=== PATIENT | female | born 1940 | race Caucasian/White ===

== ENCOUNTER 2017-12-18 15:41 | Inpatient (IN) | payer OTHER, BC ==
[~2017-12-18] VITALS: Ht 165.1 cm; Wt 85.5 kg
[~2017-12-18 15:41] MED LIST: CENTRUM SILV1 TABLET PO; Cinnamon Bark PO; Desyrel PO; ELDEPRYL5 M1 PO; FLAXSEED OIL1000 M2 PO; KLONOPIN0.5 M1 PO; KlonoPIN PO; Norvasc PO; Omega III EPA + DHA PO; PREVACID SOLUTA30 MG PO; SINEMET CR 25-1 EACH PO; SYMMETREL100 M1 PO
[2017-12-18 16:22] LABS: HEMATOCRIT 41.7 % (36.0-46.0); HEMOGLOBIN 14.3 G/DL (11.9-15.5); MCHC 34.3 G/DL (30.0-36.0); MCV 93.3 FL (83-99); PLATELET COUNT 209 K/uL (156-360); RBC DIS.WIDTH-CV 13.7 % (11.8-14.6); RBC DIS.WIDTH-SD 46.5 % (39-53); RED BLOOD COUNT 4.47 M/uL (3.80-5.20); WHITE BLOOD COUNT 5.9 K/uL (4.1-10.2)
[2017-12-18 16:35] LABS: CHLORIDE 99 mEq/L (99-109); POTASSIUM 3.7 mEq/L (3.7-5.4); SODIUM 135 mEq/L (136-147)
[2017-12-18 16:36] LABS: GLUCOSE 98 mg/dL (70-99)
[2017-12-18 16:40] LABS: CREATININE 1.1 mg/dL (0.6-1.3); GFR ESTIMATE (CALCULATED) 51 mL/min/
[2017-12-18 16:41] LABS: UREA NITROGEN (BUN) 13 mg/dL (9-23)
[2017-12-18 16:46] LABS: TROP-I INTERPRETATION NEGATIVE; TROPONIN-I < 0.01 ng/mL (0.0-0.30)
[2017-12-18] MEDS ORDERED: CARBIDOPA-LEVO1 EAC7 PO (21:44)
[2017-12-18] MEDS ORDERED: CARBIDOPA/LEVO1 EACH PO (21:45)
[2017-12-18] MEDS ORDERED: AMANTADINE100 MG PO (21:46)
[2017-12-18] MEDS ORDERED: TRAZODONE HCL50 MG PO (21:47)
[2017-12-18] MEDS ORDERED: AMLODIPINE BESY10 MG PO (21:47)
[2017-12-18] MEDS ORDERED: CLONAZEPAM0.5 MG PO (21:48)
[2017-12-18] MEDS ORDERED: DONEPEZIL HCL10 MG PO (21:49)
[2017-12-18] MEDS ORDERED: LANSOPRAZOLE30 MG PO (21:49)
[2017-12-18] MEDS ORDERED: VENLAFAXINE HC150 M1 PO (21:50)
[2017-12-18] MEDS ORDERED: CALCIUM 500 MG1 EAC2 PO (21:59)
[2017-12-18] MEDS ORDERED: VITAMIN D-3 401 EACH PO (21:59)
[2017-12-18] MEDS ORDERED: CO Q-10100 MG PO (22:00)
[2017-12-18] MEDS ORDERED: VITAMIN B-12500 MC3 PO (22:01)
[2017-12-19 00:06] LABS: PTT 29.2 SEC (25-37)
[2017-12-19 06:31] LABS: BASOPHIL (%) 0.7 % (0-1); EOSINOPHIL (%) 1.3 % (0-5); HEMATOCRIT 41.1 % (36.0-46.0); HEMOGLOBIN 13.6 G/DL (11.9-15.5); LYMPHOCYTE (%) 30.7 % (15-42); LYMPHOCYTE COUNT 0.9 K/uL (1.0-2.8); MCH 31.5 PG (29.0-34.0); MCHC 33.1 G/DL (30.0-36.0); MCV 95.1 FL (83-99); MONOCYTE COUNT 0.6 K/uL (0-0.8); NEUTROPHIL (%) 47.3 % (45-76); NEUTROPHIL COUNT 1.4 K/uL (1.8-6.4); RBC DIS.WIDTH-CV 13.9 % (11.8-14.6); RBC DIS.WIDTH-SD 48.7 % (39-53); RED BLOOD COUNT 4.32 M/uL (3.80-5.20)
[2017-12-19 06:58] LABS: CHLORIDE 102 mEq/L (99-109); POTASSIUM 3.9 mEq/L (3.7-5.4); SODIUM 136 mEq/L (136-147)
[2017-12-19 06:59] LABS: GLUCOSE 85 mg/dL (70-99)
[2017-12-19 07:03] LABS: CREATININE 0.9 mg/dL (0.6-1.3); GFR ESTIMATE (CALCULATED) > 59 mL/min/
[2017-12-19 07:04] LABS: UREA NITROGEN (BUN) 13 mg/dL (9-23)
[2017-12-19 07:21] LABS: PLATELET CLUMPS PRESENT - PLATELET COUNT APPEARS ADQ.
[2017-12-19 07:23] LABS: PLATELET COUNT UNABLE TO REPORT K/uL (156-360)
[2017-12-19 14:33] VITALS: BP 128/68
[2017-12-20 00:05] VITALS: BP 143/78
[2017-12-20 06:52] LABS: HEMATOCRIT 40.2 % (36.0-46.0); HEMOGLOBIN 13.1 G/DL (11.9-15.5); MCH 31.3 PG (29.0-34.0); MCHC 32.6 G/DL (30.0-36.0); MCV 96.2 FL (83-99); PLATELET COUNT 179 K/uL (156-360); RBC DIS.WIDTH-SD 49.5 % (39-53); RED BLOOD COUNT 4.18 M/uL (3.80-5.20); WHITE BLOOD COUNT 2.7 K/uL (4.1-10.2)
[2017-12-20 07:07] VITALS: BP 136/82
[2017-12-20 07:16] LABS: CHLORIDE 101 MEQ/L (99-109); GFR ESTIMATE (CALCULATED) 57 mL/min/; GLUCOSE 82 mg/dL (70-99); POTASSIUM 3.9 MEQ/L (3.7-5.4); SODIUM 139 MEQ/L (136-147); UREA NITROGEN (BUN) 17 mg/dL (9-23)
[2017-12-20 11:04] LABS: APPEARANCE SL.HAZY ((CLEAR)); BILIRUBIN NEGATIVE; BLOOD NEGATIVE; COLOR YELLOW ((YELLOW)); GLUCOSE (STRIP) NEGATIVE; KETONES 5; LEUKOCYTES TRACE; NITRITE NEGATIVE; PROTEIN (STRIP) NEGATIVE; SPECIFIC GRAVITY 1.019 (1.000-1.030); UROBILINOGEN 0.2 MG/DL (0.2-1.0)
[2017-12-20 11:14] LABS: BACTERIA RARE /HPF; EPITHELIAL CELLS 2+ /HPF; MUCUS 1+ /LPF; RED BLOOD CELLS 0-5 /HPF (0-5); UCUL ADDED? YES
[2017-12-20 16:00] VITALS: BP 135/73
[2017-12-20 19:22] VITALS: BP 128/70
[2017-12-20 23:37] VITALS: BP 133/70
[2017-12-21 06:39] LABS: HEMATOCRIT 38.2 % (36.0-46.0); HEMOGLOBIN 12.6 G/DL (11.9-15.5); MCV 93.9 FL (83-99); PLATELET COUNT 200 K/uL (156-360); RBC DIS.WIDTH-CV 13.3 % (11.8-14.6); RBC DIS.WIDTH-SD 46.5 % (39-53); RED BLOOD COUNT 4.07 M/uL (3.80-5.20); WHITE BLOOD COUNT 3.3 K/uL (4.1-10.2)
[2017-12-21 07:01] LABS: CHLORIDE 103 MEQ/L (99-109); CREATININE 0.9 MG/DL (0.6-1.3); GFR ESTIMATE (CALCULATED) > 59 mL/min/; GLUCOSE 93 mg/dL (70-99); POTASSIUM 3.8 MEQ/L (3.7-5.4); SODIUM 139 MEQ/L (136-147); UREA NITROGEN (BUN) 20 mg/dL (9-23)
[2017-12-21 10:07] VITALS: BP 120/70
[2017-12-21 10:14] LABS: C DIFF TOXIN NEGATIVE (NEGATIVE)
[2017-12-21 23:56] VITALS: BP 129/65
[2017-12-22 07:09] LABS: CHLORIDE 102 MEQ/L (99-109); GFR ESTIMATE (CALCULATED) 57 mL/min/; GLUCOSE 90 mg/dL (70-99); SODIUM 139 MEQ/L (136-147); UREA NITROGEN (BUN) 23 mg/dL (9-23)
[2017-12-22 07:33] VITALS: BP 120/76
[2017-12-22] MEDS ORDERED: DOXYCYCLINE HY100 M3 PO (10:22)
[2017-12-22] MEDS ORDERED: OSELTAMIVIR PHO30 MG PO (10:22)
== END 2017-12-22 12:30 | disposition home or self-care (01) | DRG 193 ==
LOC: EME 15:41 → 2EAST 21:29 → EDOF 21:29 → ENRESERV 21:34 → 2EAST 12-19 14:28
PROVIDERS: Hospitalist; Physician Assistant
DX: J10.00 Influenza due to other identified influenza virus with unspecified type of pneumonia (principal); J96.01 Acute respiratory failure with hypoxia; J10.1 Influenza due to other identified influenza virus with other respiratory manifestations; J20.9 Acute bronchitis, unspecified; J98.11 Atelectasis; R19.7 Diarrhea, unspecified; J90 Pleural effusion, not elsewhere classified; G20 Parkinson's disease; E04.1 Nontoxic single thyroid nodule; R59.0 Localized enlarged lymph nodes; I70.0 Atherosclerosis of aorta; I25.10 Atherosclerotic heart disease of native coronary artery without angina pectoris; I10 Essential (primary) hypertension; R79.1 Abnormal coagulation profile; K21.9 Gastro-esophageal reflux disease without esophagitis; F32.9 Major depressive disorder, single episode, unspecified; F41.9 Anxiety disorder, unspecified; I34.1 Nonrheumatic mitral (valve) prolapse; Z74.01 Bed confinement status; Z87.891 Personal history of nicotine dependence; Z96.9 Presence of functional implant, unspecified
CPT/HCPCS: 71045; 71275; 80048; 81003; 83605; 83880 GA; 84484; 85025; 85027; 85379; 85610; 85730; 87040; 87070; 87086; 87205; 87449; 87493; 87502; 94799; 99202; 99281; 99285; G9033; J0295; J0456; J0696; J1650; J7030; J7050; J7512